=== PATIENT | female | born 1945 | race Caucasian/White ===

== ENCOUNTER 2024-03-06 08:58 | Emergency (ER) | payer MEDICARE, OTHER ==
[~2024-03-06] VITALS: Ht 154.9 cm; Wt 112.0 kg
[2024-03-06 09:07] VITALS: BP 148/71
[2024-03-06] MEDS ORDERED: ACETAMINOPHEN 325 MG/TAB PO ONE (09:15)
[2024-03-06 09:16] VITALS: BP 140/56
[2024-03-06 09:31] VITALS: BP 151/64
[2024-03-06 09:46] VITALS: BP 131/55
[2024-03-06 10:01] VITALS: BP 134/56
== END 2024-03-06 10:04 | disposition home or self-care (01) ==
LOC: ED 08:58
DX: R51.9 Headache, unspecified (principal); M79.621 Pain in right upper arm; I10 Essential (primary) hypertension; E78.00 Pure hypercholesterolemia, unspecified; W18.39XA Other fall on same level, initial encounter